=== PATIENT | male | born 1960 | race Caucasian/White ===

== ENCOUNTER 2018-06-19 02:39 | Emergency (ER) | payer MEDICAID ==
[~2018-06-19] VITALS: Ht 167.6 cm; Wt 79.4 kg
[2018-06-19] MEDS ORDERED: ATOR10TA PO (02:52)
--- NOTE | 2018-06-19 03:04 | NUR ---
Pt. ambulated into ED w/ c/o 01/10 intermittent generalized JARAMILLO x 4 days w/ minor blurred vision when reading, c/o HTN, denies F/C/N/V/CP/SOB, denies falling or injuring his head, pt. has symmetrical strength in extremeties, denies dizziness/weakness, MD at bedside for MSE, will continue to monitor,
[2018-06-19] MEDS ORDERED: ACETAMINOPHEN ES 500 MG TABLET ONE (03:10)
--- NOTE | 2018-06-19 03:12 | NUR ---
Called rad. for CT
[2018-06-19] MEDS ORDERED: ACETAMINOPHEN 325 MG TABLET PO ONE (03:15)
--- NOTE | 2018-06-19 03:17 | NUR ---
proced tech. at bedside for transport to CT
--- NOTE | 2018-06-19 03:26 | NUR ---
Pt. back in room from [place]
--- NOTE | 2018-06-19 03:47 | NUR ---
Patient discharged to home in stable conditon. Written and verbal after care instructions given. Patient verbalizes understanding of instructions. Pt. d/c per MD order, all d/c papers signed, left w/ all belongings, ID band removed, ambulated out of ED w/ steady gait, left in private vehicle, NAD
== END 2018-06-19 03:48 | disposition home or self-care (01) ==
LOC: ER 02:42
DX: R51 Headache (principal); R03.0 Elevated blood-pressure reading, without diagnosis of hypertension; E78.5 Hyperlipidemia, unspecified; Z79.899 Other long term (current) drug therapy
CPT/HCPCS: 70450; A4663; A9150

== ENCOUNTER 2018-11-04 10:18 | Emergency (ER) | payer MEDICAID ==
[~2018-11-04] VITALS: Ht 167.6 cm; Wt 74.8 kg
[~2018-11-04 10:18] MED LIST: ATOR10TA PO
[2018-11-04 10:49] LABS: *BILIRUBIN,URIN NEGATIVE (NEGATIVE); *CLARITY,URINE CLEAR (CLEAR); *COLOR,URINE LIGHT YELLOW (YELLOW); *KETONES,URINE NEGATIVE (NEGATIVE); *UROBILINOGEN,URINE 0.2 E.U./dl (NORMAL); LEUKOCYTE ESTERASE ,URINE NEGATIVE (NEGATIVE); NITRITE, URINE NEGATIVE (NEGATIVE); UGLUCOSE NEGATIVE (NEGATIVE)
[2018-11-04] MEDS ORDERED: IBUPROFEN 600 MG TABLET PO ONE (11:00)
[2018-11-04] MEDS ORDERED: IBUPROFEN 600 MG TABLET ONE (11:04)
[2018-11-04 11:08] LABS: *BLOOD, URINE TRACE (NEGATIVE)
--- NOTE | 2018-11-04 11:15 | NUR ---
PATIENT WAS SEEN BY . ULTRASOUND IN PROCESS. MEDICATION GIVEN ORDERED.
[2018-11-04 11:25] LABS: BACTERIA,URINE NONE SEEN /HPF (NONE SEEN); RBC,URINE 0-3 /HPF (0-3); SQUAMOUS EPITHELIAL CELL,UR FEW /HPF (NONE SEEN); WBC,URINE 0-3 /HPF (0-3)
[2018-11-04] MEDS ORDERED: CIPROFLOXACIN HCL 250 MG TABLET ONE (11:39)
--- NOTE | 2018-11-04 11:40 | NUR ---
DC, RX AND FOLLOW UP INSTRUCTIONS GIVEN AND EXPLAINED TO PATIENT WHO STATES HE UNDERSTANDS ALL INSTRUCTIONS.
--- NOTE | 2018-11-04 11:41 | NUR ---
PATIENT STATES PAIN HAS DIMINISHED
--- NOTE | 2018-11-04 11:41 | NUR ---
COPIES OF LAB AND IMAGING GIVEN TO PATIENT
[2018-11-04] MEDS ORDERED: CIPROFLOXACIN HCL 250 MG TABLET PO ONE (11:45)
== END 2018-11-04 11:42 | disposition home or self-care (01) ==
LOC: ER 10:18
DX: N50.82 Scrotal pain (principal); E78.5 Hyperlipidemia, unspecified; Z79.899 Other long term (current) drug therapy
CPT/HCPCS: 76870; A4663

== ENCOUNTER 2018-12-09 17:28 | Emergency (ER) | payer MEDICAID ==
[~2018-12-09] VITALS: Ht 172.7 cm; Wt 68.0 kg
[2018-12-09] MEDS ORDERED: ACETAMINOPHEN ES 500 MG TABLET PO ONE (18:00)
[2018-12-09] MEDS ORDERED: ACETAMINOPHEN ES 500 MG TABLET ONE (18:12)
--- NOTE | 2018-12-09 18:48 | NUR ---
Patient discharged to home in stable conditon. Written and verbal after care instructions given. Patient verbalizes understanding of instructions.
== END 2018-12-09 18:48 | disposition home or self-care (01) ==
LOC: ER 17:28
DX: L03.116 Cellulitis of left lower limb (principal); E78.5 Hyperlipidemia, unspecified; Z79.899 Other long term (current) drug therapy
CPT/HCPCS: 73610; A4663; A9150

== ENCOUNTER 2018-12-20 14:44 | Emergency (ER) | payer MEDICAID ==
[~2018-12-20] VITALS: Ht 167.6 cm; Wt 74.8 kg
[2018-12-20 15:24] LABS: BASOPHILS % (AUTO) 0.6 % (0.0-2.0); EOSINOPHILS # (AUTO) 0.1 K/uL (0.0-0.7); EOSINOPHILS % (AUTO) 1.1 % (0.0-7.0); HEMATOCRIT 45.1 % (36.7-47.1); HEMOGLOBIN 15.2 g/dL (12.5-16.3); LYMPHOCYTES # (AUTO) 1.9 K/uL (20.0-40.0); LYMPHOCYTES % (AUTO) 25.8 % (20.5-51.5); MEAN CORPUSCULAR HEMOGLOBIN 29.2 uug (23.8-33.4); MEAN CORPUSCULAR HGB CONC 34 g/dL (32.5-36.3); MEAN CORPUSCULAR VOLUME 86.7 fL (73.0-96.2); MONOCYTES # (AUTO) 0.6 K/uL (2.0-10.0); MONOCYTES % (AUTO) 7.8 % (0.0-11.0); NEUTROPHILS # (AUTO) 4.7 K/uL (1.8-8.9); NEUTROPHILS % (AUTO) 64.7 % (38.5-71.5); PLATELET COUNT (AUTO) 242 K/uL (152-348); WHITE BLOOD COUNT (AUTO) 7.3 K/uL (3.6-10.2)
[2018-12-20 15:33] LABS: CREATININE 1.1 mg/dL (0.6-1.3)
[2018-12-20] MEDS: IV NORMAL SALINE 1000 ML BAG IV ONE ×2 (15:37)
[2018-12-20] MEDS ORDERED: IV NORMAL SALINE 250 ML IV ONE (15:49)
[2018-12-20] MEDS ORDERED: IOHEXOL 350 100 ML INFUS..BTL ONE (15:49)
[2018-12-20] MEDS ORDERED: SWABABLE VALVE TRANSFER SET EA MC ONE (15:49)
[2018-12-20 17:14] VITALS: BP 110/78
--- NOTE | 2018-12-20 17:25 | NUR ---
Patient discharged to home in stable conditon. Written and verbal after care instructions given. Patient verbalizes understanding of instructions. Taken to his car in a W/C by Nurse Arizmendi.
--- NOTE | 2018-12-31 19:25 | NUR ---
L/M FOR PATIENT ON VM. NEED TO DISCUSS CT ORDERED
== END 2018-12-20 17:28 | disposition home or self-care (01) ==
LOC: ER 14:44
DX: M25.561 Pain in right knee (principal); L03.115 Cellulitis of right lower limb; E78.5 Hyperlipidemia, unspecified; Z79.899 Other long term (current) drug therapy
CPT/HCPCS: 36415; 73701; 80048; 85025; 99284; Q9967; A4663; J7030; J7050

== ENCOUNTER 2019-03-19 17:17 | Emergency (ER) | payer MEDICAID ==
[~2019-03-19] VITALS: Ht 167.6 cm; Wt 77.1 kg
[2019-03-19 17:36] LABS: BASOPHILS % (AUTO) 0.6 % (0.0-2.0); EOSINOPHILS # (AUTO) 0.4 K/uL (0.0-0.7); EOSINOPHILS % (AUTO) 5.6 % (0.0-7.0); HEMATOCRIT 46.9 % (36.7-47.1); HEMOGLOBIN 15.7 g/dL (12.5-16.3); LYMPHOCYTES % (AUTO) 27.8 % (20.5-51.5); MEAN CORPUSCULAR HEMOGLOBIN 29.4 uug (23.8-33.4); MEAN CORPUSCULAR HGB CONC 33 g/dL (32.5-36.3); MEAN CORPUSCULAR VOLUME 88.2 fL (73.0-96.2); MONOCYTES # (AUTO) 0.8 K/uL (2.0-10.0); MONOCYTES % (AUTO) 10.9 % (0.0-11.0); NEUTROPHILS # (AUTO) 4.1 K/uL (1.8-8.9); NEUTROPHILS % (AUTO) 55.1 % (38.5-71.5); PLATELET COUNT (AUTO) 234 K/uL (152-348); RED BLOOD CELL COUNT(AUTO) 5.32 MIL/uL (4.06-5.63); WHITE BLOOD COUNT (AUTO) 7.4 K/uL (3.6-10.2)
[2019-03-19 17:44] LABS: CREATININE 1.2 mg/dL (0.6-1.3); POTASSIUM 4.3 mmol/L (3.5-5.1)
[2019-03-19 17:50] LABS: BILIRUBIN,DIRECT 0.3 mg/dL (0.0-0.2); BILIRUBIN,TOTAL 1.5 mg/dL (0.2-1.0); TOTAL PROTEIN, SERUM 6.9 g/dL (6.4-8.2)
[2019-03-19 18:17] LABS: *BILIRUBIN,URIN NEGATIVE (NEGATIVE); *BLOOD, URINE NEGATIVE (NEGATIVE); *CLARITY,URINE CLEAR (CLEAR); *COLOR,URINE YELLOW (YELLOW); *KETONES,URINE NEGATIVE (NEGATIVE); *UROBILINOGEN,URINE 0.2 E.U./dl (NORMAL); LEUKOCYTE ESTERASE ,URINE NEGATIVE (NEGATIVE); NITRITE, URINE NEGATIVE (NEGATIVE); PH,URINE 6.5 (5.0-8.0); UGLUCOSE NEGATIVE (NEGATIVE)
--- NOTE | 2019-03-19 18:23 | NUR ---
PT IS IN ROOM #2B. DR RUST EVALUATED THE PT.
--- NOTE | 2019-03-19 19:26 | NUR ---
pt was d/c'd to home. d/c instructions given to the pt.
[2019-03-19 19:28] VITALS: BP 132/87
== END 2019-03-19 19:29 | disposition home or self-care (01) ==
LOC: ER 17:18
DX: R10.30 Lower abdominal pain, unspecified (principal); E78.5 Hyperlipidemia, unspecified; Z79.899 Other long term (current) drug therapy
CPT/HCPCS: 36415; 76870; 83690; 85025; A4663

== ENCOUNTER 2020-10-27 07:29 | Emergency (ER) | payer MEDICAID ==
[~2020-10-27] VITALS: Ht 167.6 cm; Wt 77.1 kg
--- NOTE | 2020-10-27 08:40 | NUR ---
Patient discharged to home in stable condition. Written and verbal after care instructions given. Patient verbalizes understanding of instructions. Stressed follow up or return to ER for worsening s/s.
== END 2020-10-27 08:40 | disposition home or self-care (01) ==
LOC: ER 07:29
DX: R60.0 Localized edema (principal); E78.5 Hyperlipidemia, unspecified; Z79.899 Other long term (current) drug therapy
CPT/HCPCS: 36415; A4663

== ENCOUNTER 2020-12-05 05:27 | Emergency (ER) | payer MEDICAID ==
[~2020-12-05] VITALS: Ht 167.6 cm; Wt 77.1 kg
--- NOTE | 2020-12-05 06:30 | NUR ---
Dr. Coto at bedside for MSE.
--- NOTE | 2020-12-05 06:49 | NUR ---
Xray at bedside.
[2020-12-05] MEDS ORDERED: HYDR-3980 PO (07:04)
--- NOTE | 2020-12-05 07:10 | NUR ---
Patient discharged to home in stable condition. Written and verbal after care instructions given. Patient verbalizes understanding of instructions. Stressed follow up or return to ER for worsening s/s. Pt out of ER with steady gait, no acute signs of distress, VSS, all belongings taken.
[2020-12-05 07:11] VITALS: BP 111/74
== END 2020-12-05 07:11 | disposition home or self-care (01) ==
LOC: ER 05:29
DX: S16.1XXA Strain of muscle, fascia and tendon at neck level, initial encounter (principal); X58.XXXA Exposure to other specified factors, initial encounter; Y92.89 Other specified places as the place of occurrence of the external cause; E78.5 Hyperlipidemia, unspecified; Z79.899 Other long term (current) drug therapy
CPT/HCPCS: A4663

== ENCOUNTER 2021-09-03 05:42 | Emergency (ER) | payer MEDICAID ==
[~2021-09-03] VITALS: Ht 167.6 cm; Wt 74.8 kg
[~2021-09-03 05:42] MED LIST changes: +HYDR-3980 PO
--- NOTE | 2021-09-03 05:55 | NUR ---
Dr. Ospina at bedside for MSE.
--- NOTE | 2021-09-03 06:07 | NUR ---
Patient discharged to home in stable condition. Written and verbal after care instructions given. Patient verbalizes understanding of instructions. Stressed follow up or return to ER for worsening s/s. Patient out of ER with steady gait, no acute signs of distress, VSS, all belongings taken.
[2021-09-03 06:08] VITALS: BP 125/82
== END 2021-09-03 06:08 | disposition home or self-care (01) ==
LOC: ER 05:42
DX: L30.9 Dermatitis, unspecified (principal); R60.0 Localized edema; E78.5 Hyperlipidemia, unspecified; Z79.899 Other long term (current) drug therapy
CPT/HCPCS: A4663

== ENCOUNTER 2022-09-27 16:18 | Emergency (ER) | payer MEDICAID ==
[~2022-09-27] VITALS: Ht 167.6 cm; Wt 77.1 kg
[2022-09-27] MEDS ORDERED: KETOROLAC TROMETHAMINE 30 MG INJ ONE (17:10)
[2022-09-27] MEDS ORDERED: KETOROLAC TROMETHAMINE 30 MG INJ IM ONE (17:15)
[2022-09-27] MEDS ORDERED: HYDROCODONE/APAP 10-325 MG TABLET ONE (17:45)
[2022-09-27] MEDS ORDERED: HYDROCODONE/APAP 10-325 MG TABLET PO ONE (17:45)
[2022-09-27] MEDS ORDERED: HYDR-3980 PO (18:08)
== END 2022-09-27 18:16 | disposition home or self-care (01) ==
LOC: ER 16:21
DX: M25.572 Pain in left ankle and joints of left foot (principal); E78.5 Hyperlipidemia, unspecified; Z79.899 Other long term (current) drug therapy
CPT/HCPCS: 99283; 73610; 96372; J1885; A4663

== ENCOUNTER 2022-10-11 07:17 | Emergency (ER) | payer MEDICAID ==
[~2022-10-11] VITALS: Ht 167.6 cm; Wt 77.1 kg
[2022-10-11] MEDS ORDERED: KETOROLAC TROMETHAMINE 15 MG INJ ONE (07:30)
[2022-10-11] MEDS ORDERED: KETOROLAC TROMETHAMINE 15 MG INJ IM ONE (07:30)
--- NOTE | 2022-10-11 07:35 | NUR ---
Pt states he had a mechanical fal onto his right shoulder, has pain. Distal PMS intact.
--- NOTE | 2022-10-11 08:15 | NUR ---
applied sling and swoth to pt's right arm, PMS intact afterwards. Gave pt d/c instructions, pt verbalized understanding.
== END 2022-10-11 08:26 | disposition home or self-care (01) ==
LOC: ER 07:17
DX: M77.8 Other enthesopathies, not elsewhere classified (principal); M25.511 Pain in right shoulder; E78.5 Hyperlipidemia, unspecified; Z79.899 Other long term (current) drug therapy
CPT/HCPCS: 99283; 73030; 96372; J1885; A4663

== ENCOUNTER 2023-09-29 13:53 | Emergency (ER) | payer MEDICAID ==
[~2023-09-29] VITALS: Ht 167.6 cm; Wt 77.1 kg
[2023-09-29 15:06] LABS: BASOPHILS % (AUTO) 0.4 % (0.0-2.0); EOSINOPHILS # (AUTO) 0.1 K/uL (0.0-0.7); EOSINOPHILS % (AUTO) 1.4 % (0.0-7.0); HEMATOCRIT 47.3 % (36.7-47.1); HEMOGLOBIN 15.9 g/dL (12.5-16.3); LYMPHOCYTES # (AUTO) 2.1 K/uL (0.8-4.8); LYMPHOCYTES % (AUTO) 29.4 % (20.5-51.5); MEAN CORPUSCULAR HEMOGLOBIN 29.3 uug (23.8-33.4); MEAN CORPUSCULAR HGB CONC 34 g/dL (32.5-36.3); MEAN CORPUSCULAR VOLUME 87.1 fL (73.0-96.2); MONOCYTES # (AUTO) 0.5 K/uL (0.1-1.30); MONOCYTES % (AUTO) 7.1 % (0.0-11.0); NEUTROPHILS # (AUTO) 4.4 K/uL (1.8-8.9); NEUTROPHILS % (AUTO) 61.7 % (38.5-71.5); PLATELET COUNT (AUTO) 237 K/uL (152-348); RED BLOOD CELL COUNT(AUTO) 5.43 MIL/uL (4.06-5.63); RED CELL DISTRIBUTION WIDTH 14.4 % (12.1-16.2); WHITE BLOOD COUNT (AUTO) 7.2 K/uL (3.6-10.2)
[2023-09-29 15:11] LABS: DIFFERENTIAL COMMENT 1
[2023-09-29 15:18] LABS: CALCIUM 9.4 mg/dL (8.5-10.1); CARBON DIOXIDE 31 mmol/L (21-32); CHLORIDE 102 mmol/L (98-107); CREATININE 1.1 mg/dL (0.6-1.3); GLUCOSE 91 mg/dL (74-106); POTASSIUM 4.4 mmol/L (3.5-5.1); SODIUM SERUM 139 mmol/L (136-145); UREA NITROGEN, BLOOD 12 mg/dL (7-18)
[2023-09-29 15:27] LABS: ALANINE AMINOTRANSFERASE 44 U/L (16-63); ALBUMIN 3.8 g/dL (3.4-5.0); ALKALINE PHOSPHATASE 73 U/L (50-136); ASPARTATE AMINOTRANSFERASE 12 U/L (15-37); BILIRUBIN,DIRECT 0.3 mg/dL (0.0-0.2); BILIRUBIN,TOTAL 2.3 mg/dL (0.2-1.0); LIPASE 47 U/L (16-77)
[2023-09-29] MEDS ORDERED: FAMO40TA7 PO (17:05)
[2023-09-29] MEDS ORDERED: SUCR1ORA PO (17:05)
[2023-09-29 17:11] VITALS: BP 130/70; TEMP 98; O2SAT 99
== END 2023-09-29 18:46 | disposition home or self-care (01) ==
LOC: ER 13:53
DX: R10.13 Epigastric pain (principal); E78.5 Hyperlipidemia, unspecified; Z79.899 Other long term (current) drug therapy
CPT/HCPCS: 36415; 71045; 83690; 84484; 85025; 85730; 93005; A4606; A4663